=== PATIENT | female | born 1940 | race Caucasian/White ===

== ENCOUNTER 2018-02-21 20:57 | Emergency (ER) | payer MEDICARE ==
[2018-02-21] MEDS ORDERED: OXYCODONE-ACETAMINOPHEN 5-325 MG TABLET PO ONE (22:27)
[2018-02-21] MEDS ORDERED: ONDANSETRON 4 MG TAB.RAPDIS PO ONE (22:27)
--- NOTE | 2018-02-21 22:28 | ER Document Report ---
ED Fall - General Chief Complaint: Fall Stated Complaint: FALL Time Seen by Provider: 02/21/18 22:21 Notes: Patient is a 78-year-old female that comes emergency department for chief complaint of tripping and falling, she states she tripped over a suitcase that was in the hallway, landed on her left side, she reports pain in her left shoulder, left hip, left femur area. She denies hitting her head, vomiting, passing out. She denies shortness of breath, abdominal pain, back pain. She denies incontinence, focal numbness or weakness. She takes aspirin but no other blood thinners. She is visiting from [place] and is on a road trip with her family. TRAVEL OUTSIDE OF THE [place] IN LAST 30 DAYS: No - Related data Allergies/Adverse Reactions: No Known Allergies Allergy (Unverified 02/21/18 20:57) Past Medical History - General Information source: Patient - Social History Smoking Status: Never Smoker Frequency of alcohol use: None Drug Abuse: None Lives with: Family Family History: Reviewed & Not Pertinent - Immunizations Immunizations up to date: Yes Hx Diphtheria, Pertussis, Tetanus Vaccination: Yes Review of Systems - Review of Systems Constitutional: No symptoms reported EENT: No symptoms reported Cardiovascular: No symptoms reported Respiratory: No symptoms reported Gastrointestinal: No symptoms reported Genitourinary: No symptoms reported Female Genitourinary: No symptoms reported Musculoskeletal: See HPI Skin: No symptoms reported Hematologic/Lymphatic: No symptoms reported Neurological/Psychological: No symptoms reported Physical Exam - Vital signs Vitals: Temp Pulse Resp BP Pulse Ox 97.4 F 86 16 169/82 H 96 02/21/18 21:02 02/21/18 21:02 02/21/18 21:02 02/21/18 21:02 02/21/18 21:02 - Notes Notes: GENERAL: Alert, interacts well. No acute distress. HEAD: Normocephalic, atraumatic. EYES: Pupils equal, round, and reactive to light. Extraocular movements intact. ENT: Oral mucosa moist, tongue midline. NECK: Full range of motion. Supple. Trachea midline. LUNGS: Clear to auscultation bilaterally, no wheezes, rales, or rhonchi. No respiratory distress. HEART: Regular rate and rhythm. No murmur ABDOMEN: Soft, non-tender. Non-distended. Bowel sounds present in all 4 quadrants. EXTREMITIES: Pain over left shoulder, left mid forearm, normal range of motion of the shoulder, elbow, wrist, no snuffbox tenderness, normal distal neurovascular exam. Normal right upper extremity exam. Tenderness over the left femur area, no tenderness in the groin area, normal range of motion at the hip, normal distal neurovascular exam. Patient limps with ambulation. BACK: no cervical, thoracic, lumbar midline tenderness. No saddle anesthesia, normal distal neurovascular exam. NEUROLOGICAL: Alert and oriented x3. Normal speech. [cranial nerves II through XII grossly intact]. PSYCH: Normal affect, normal mood. SKIN: Warm, dry, normal turgor. No rashes or lesions noted. Course - Re-evaluation Re-evalutation: Concern for possible hip fracture. After pain medicine patient is able to ambulate with a limp but does so quite well and reports minimal pain. X-rays show no fracture or dislocation. No concerning findings otherwise, no other trauma symptoms reported. Based on her ability to ambulate I have low suspicion of underlying undiagnosed hip fracture. Provided with pain medication , walker for a few days, discussed follow-up in detail, discussed return precautions. Patient and family state understanding and agreement. - Vital Signs Vital signs: Temp Pulse Resp BP Pulse Ox 97.7 F 64 16 149/70 H 98 02/22/18 01:16 02/22/18 01:16 02/22/18 01:16 02/22/18 01:16 02/22/18 01:16 Discharge - Discharge Clinical Impression: Left hip pain, Left arm pain Fall Qualifiers: Encounter type: initial encounter Qualified Code(s): W19.XXXA - Unspecified fall, initial encounter Left shoulder pain Qualifiers: Chronicity: acute Qualified Code(s): M25.512 - Pain in left shoulder Condition: Stable Disposition: HOME, SELF-CARE Additional Instructions: No fracture, dislocation, or concerning abnormality is seen. This appears to be soft tissue injury, probable sprain as well. Ice the area especially over the leg 3-4 times a day for 10-15 minutes, you can take [id number] ibuprofen, take the prescribed pain medication if needed, use the walker for the first couple of days if needed. If you take the pain medication also take the Colace stool softener to avoid constipation. Soreness should increase for the first couple of days and then should start going down. Follow-up with primary care. Return for any concerning symptoms including severe pain or swelling. Prescriptions: Morphine Sulfate [Morphine Ir 15 Mg Tablet] 15 mg PO Q4HP PRN #12 tablet PRN Reason: Docusate Sodium [Colace 100 mg Capsule] 100 mg PO ASDIR PRN #30 capsule PRN Reason: Walker [Folding Walker] 1 each MC ASDIR PRN #1 each PRN Reason:
--- NOTE | 2018-02-22 01:01 | RADIOLOGY REPORT (SQ) ---
EXAM DESCRIPTION: XR HIP 2 OR MORE VIEWS COMPLETED DATE/TME: 02/21/2018 22:27 CLINICAL HISTORY: 78 years, Female, fall, pain COMPARISON: None. FINDINGS: Single view of the pelvis and 2 views of the left hip. Osteopenia. Degenerative change of the visualized lumbar spine, sacroiliac joints, and pubic symphysis. Moderate bilateral joint space narrowing of the hips. Atherosclerotic vascular calcification. No acute fracture or dislocation identified. Visualized portions of the left femur are intact. IMPRESSION: 1. No acute fracture or dislocation. 2011 [email or web address]- All Rights Reserved
--- NOTE | 2018-02-22 01:02 | RADIOLOGY REPORT (SQ) ---
EXAM DESCRIPTION: XR SHOULDER 2 OR MORE VIEWS COMPLETED DATE/TME: 02/21/2018 22:27 CLINICAL HISTORY: 78 years, Female, fall, pain COMPARISON: None. FINDINGS: 3 views of the left shoulder. No acute fracture or dislocation. Osteopenia. No acute abnormalities of the visualized left hemithorax. IMPRESSION: No acute fracture or dislocation. 2010 [employer]- All Rights Reserved
--- NOTE | 2018-02-22 01:03 | RADIOLOGY REPORT (SQ) ---
EXAM DESCRIPTION: XR FOREARM 2 VIEWS COMPLETED DATE/TME: 02/21/2018 22:27 CLINICAL HISTORY: 78 years, Female, fall, pain COMPARISON: None. FINDINGS: 3 views of the left forearm. No acute fracture or dislocation. Osteopenia. Femoral calcification identified. No definite elbow joint effusion. IMPRESSION: No acute fracture or dislocation. 2010 [employer]- All Rights Reserved
[2018-02-22] MEDS ORDERED: HYDROCODONE/ACETAMINOPHEN 5-325 MG (6 TAB/ER DISP) PO PRN (01:11)
[2018-02-22] MEDS ORDERED: ONDANSETRON ODT 4 MG TAB (6 TAB/ER DISP) PO PRN (01:11)
[2018-02-22 01:19] VITALS: BP 149/70
== END 2018-02-22 01:30 | disposition home or self-care (01) ==
LOC: ER 20:57
DX: M25.512 Pain in left shoulder (principal); M25.552 Pain in left hip; M79.602 Pain in left arm; W01.0XXA Fall on same level from slipping, tripping and stumbling without subsequent striking against object, initial encounter
CPT/HCPCS: 99283; 73090; 73502; 73030; A9270 ×4; S0119